=== PATIENT | male | born 1940 ===

== ENCOUNTER 2018-01-10 10:36 | Day surgery (SDC) | payer MEDICARE ==
[~2018-01-10] VITALS: Ht 180.3 cm; Wt 83.2 kg
[2018-01-10] MEDS ORDERED: FENTANYL PF 250 MCG/5ML ONE (10:39)
[2018-01-10] MEDS ORDERED: PROPOFOL 10 MG/ML, 20ML ONE (10:39)
[2018-01-10] MEDS ORDERED: SODIUM CHLORIDE 0.9% PF 10ML ONE (10:40)
[2018-01-10] MEDS ORDERED: CEFAZOLIN 1,000 MG ONE ×2 (10:40)
[2018-01-10 11:08] VITALS: BP 136/85
[2018-01-10] MEDS ORDERED: LACTATED RINGERS 1,000 ML IV SCH (11:12)
[2018-01-10] MEDS ORDERED: ROSU40TA PO (11:16)
[2018-01-10] MEDS ORDERED: LEVO75TA PO (11:16)
[2018-01-10] MEDS ORDERED: ESOM20CA PO (11:16)
[2018-01-10] MEDS ORDERED: ASPI-496 PO (11:16)
[2018-01-10] MEDS ORDERED: EZET10TA18 PO (11:16)
[2018-01-10] MEDS ORDERED: DONE10TA7 PO (11:16)
[2018-01-10] MEDS ORDERED: GABAPENTIN 300 MG CAPSULE PO ONE (11:30)
[2018-01-10] MEDS ORDERED: ACETAMINOPHEN 500 MG TABLET PO ONE (11:30)
[2018-01-10] MEDS ORDERED: ONDANSETRON 2MG/ML, 2ML IV PRN (12:00)
[2018-01-10] MEDS ORDERED: PROMETHAZINE 25 MG SUPP PR PRN (12:00)
[2018-01-10] MEDS ORDERED: PROMETHAZINE 25 MG/ML, 1ML IM PRN ×2 (12:00)
[2018-01-10] MEDS ORDERED: MORPHINE SULFATE 4 MG/ML, 1ML IVPush PRN (12:00)
[2018-01-10] MEDS ORDERED: MEPERIDINE/PF 25MG/0.5ML IVPush PRN (12:00)
[2018-01-10] MEDS ORDERED: OXYcodone 5 MG/5 ML ORAL.SOL UDC PO PRN (12:00)
[2018-01-10] MEDS ORDERED: HYDROmorphone 1 MG/ML, 1ML IV PRN (12:00)
[2018-01-10] MEDS ORDERED: FENTANYL PF 100 MCG/2ML IV PRN (12:00)
[2018-01-10] MEDS ORDERED: LABETALOL 5MG/ML, 20ML IV PRN (12:00)
[2018-01-10] MEDS ORDERED: ONDANSETRON ODT 8 MG PO PRN (12:00)
[2018-01-10] MEDS ORDERED: hydrALAzine 20 MG/ML, 1ML IV PRN (12:00)
[2018-01-10] MEDS ORDERED: PROMETHAZINE 25 MG/ML, 1ML IV PRN (12:00)
[2018-01-10] MEDS ORDERED: PROMETHAZINE 12.5 MG SUPP PR PRN (12:00)
[2018-01-10] MEDS ORDERED: ROPIvacaine/PF 0.5%, 30 ML ONE (12:02)
[2018-01-10] MEDS ORDERED: KETOROLAC 30 MG/1 ML ONE (13:36)
[2018-01-10] MEDS ORDERED: KETOROLAC 30 MG/1 ML IVPush ONE (14:00)
== END 2018-01-10 14:45 | disposition home or self-care (01) ==
LOC: OUT 10:36
PROVIDERS: ATTEND Orthopaedic Surgery
DX: S83.242A Other tear of medial meniscus, current injury, left knee, initial encounter (principal); K21.9 Gastro-esophageal reflux disease without esophagitis; E03.9 Hypothyroidism, unspecified; E78.5 Hyperlipidemia, unspecified; Z79.82 Long term (current) use of aspirin; X58.XXXA Exposure to other specified factors, initial encounter; Y93.89 Activity, other specified; Y92.89 Other specified places as the place of occurrence of the external cause; Y99.8 Other external cause status
CPT/HCPCS: 29881; 93005; J0690; J2704; J2795; J3010; J7120